=== PATIENT | female | born 1935 | race Caucasian/White ===

== ENCOUNTER 2020-03-26 12:19 | Inpatient (IN) ==
[2020-03-26] MEDS ORDERED: Diltiazem IV push/loading dose 5 MG/ML 5 ML vial (25 mg) IV PUSH ONE (12:23)
[2020-03-26 12:46] LABS: ABS Basophils 0.1 10^3/ul (0-0.2); ABS Eosinophils 0.2 10^3/ul (0-0.6); ABS Lymphocytes 1.2 10^3/ul (1.0-4.8); ABS Monocytes 0.6 10^3/ul (0-0.8); ABS Neutrophils 6.3 10^3/ul (1.5-7.7); Eosinophil % 2.1 %; Hematocrit 38 % (35-47); Hemoglobin 12.4 g/dL (12.0-16.0); Lymphocyte % 14.6 %; Mean Corpuscular HGB Conc 33 g/dL (31-36); Mean Corpuscular Hemoglobin 32 pg (27-31); Mean Corpuscular Volume 98 fL (80-97); Mean Platelet Volume 9.6 fL (7.4-10.4); Platelet Count 235 10^3/uL (150-450); Red Blood Count 3.85 10^6 /uL (3.70-4.87); Red Cell Distribution Width 14 % (10-15); White Blood Count 8.3 10^3/uL (3.5-10.8)
[2020-03-26 13:04] LABS: Albumin 4.4 g/dL (3.2-5.2); Albumin/Globulin Ratio 1.5 (1-3); BUN/Creatinine Ratio 25.4 (8-20); Calcium 9.7 mg/dL (8.6-10.3); EGFR African American 55.2 (>60); EGFR Non-African American 45.6 (>60); Magnesium 1.9 mg/dL (1.9-2.7); Potassium 4.5 mmol/L (3.5-5.0); Total Bilirubin 0.5 mg/dL (0.2-1.0); Total Protein 7.4 g/dL (6.4-8.9)
[2020-03-26 13:06] LABS: Troponin I 0.01 ng/mL (<0.03)
[2020-03-26 13:40] LABS: TSH Ultra Thyroid Stim Horm 2.73 mcIU/mL (0.34-5.60)
[2020-03-26] MEDS: Diltiazem (ADVAN VIAL) 100 MG/100 ML ADDV.BAG IV SCH (15:27)
[2020-03-26 15:34] LABS: Urine Appearance Cloudy; Urine Bilirubin Negative (Negative); Urine Blood Negative (Negative); Urine Color Yellow; Urine Glucose Negative (Negative); Urine Ketones Negative (Negative); Urine Nitrite Negative (Negative); Urine Protein Negative (Negative); Urine Specific Gravity 1.018 (1.010-1.030); Urine Urobilinogen Negative (Negative)
[2020-03-26] MEDS ORDERED: GuaiFENesin DM sugar free 100mg/10mg 5 ML UDC PO PRN (15:53)
[2020-03-26] MEDS ORDERED: Furosemide 20 mg/2 ml IV VIAL IV ONE (16:01)
[2020-03-26] MEDS ORDERED: Albuterol HFA INHALER 8 gm MDI INH PRN (18:01)
[2020-03-27] MEDS: Diltiazem (ADVAN VIAL) 100 MG/100 ML ADDV.BAG IV SCH (09:06)
[2020-03-28 14:31] VITALS: BP 92/50
== END 2020-03-28 15:24 | disposition home or self-care (01) | DRG 194 ==
LOC: ED 12:19 → MEDTELE 12:19
PROVIDERS: ADMIT Hospitalist; ATTEND Hospitalist

== ENCOUNTER 2022-03-02 09:46 | Observation (INO) ==
[2022-03-02 10:19] LABS: ABS Basophils 0.1 10^3/ul (0-0.2); ABS Lymphocytes 0.8 10^3/ul (1.0-4.8); ABS Monocytes 0.2 10^3/ul (0-0.8); ABS Neutrophils 7.8 10^3/ul (1.5-7.7); Eosinophil % 0.3 %; Hematocrit 46 % (35-47); Hemoglobin 15.1 g/dL (12.0-16.0); Lymphocyte % 8.5 %; Mean Corpuscular HGB Conc 33 g/dL (31-36); Mean Corpuscular Hemoglobin 32 pg (27-31); Mean Corpuscular Volume 96 fL (80-97); Mean Platelet Volume 10.1 fL (7.4-10.4); Platelet Count 186 10^3/uL (150-450); Red Blood Count 4.76 10^6 /uL (3.70-4.87); Red Cell Distribution Width 16 % (10-15); White Blood Count 8.8 10^3/uL (3.5-10.8)
[2022-03-02 11:01] LABS: Albumin 4.1 g/dL (3.2-5.2); Albumin/Globulin Ratio 1.4 (1-3); Calcium 9.8 mg/dL (8.6-10.3); Globulin 2.9 g/dL (2-4); Magnesium 2.4 mg/dL (1.9-2.7); Total Bilirubin 0.9 mg/dL (0.2-1.0); eGFR CKD-EPI 20.2 (>60)
[2022-03-02 11:15] LABS: TSH Ultra Thyroid Stim Horm 2.7 mcIU/mL (0.34-5.60)
[2022-03-02 11:17] LABS: Free T3 2.5 pg/mL (2.5-3.9)
[2022-03-02 11:20] LABS: Free T4 0.95 ng/dL (0.61-1.12)
[2022-03-02] MEDS ORDERED: Lactated Ringers 1000 ml BAG 1,000 ML IV ONE ×3 (11:21→22:49)
[2022-03-02] MEDS ORDERED: Potassium Chlor 20 meq TAB.ER PO ONE ×2 (13:43→22:44)
[2022-03-02] MEDS ORDERED: Albuterol HFA INHALER 8 gm MDI INH SCH (15:00)
[2022-03-02] MEDS: KCL 20 MEQ/100 ML IVPREMIX 20 MEQ/100 ML BAG IV SCH ×2 (15:56→20:06)
[2022-03-02] MEDS ORDERED: Digoxin IV 0.5 MG/2 ML AMP (0.25 MG/ML) IV SLOW PU ONE (22:44)
[2022-03-03 05:20] LABS: ABS Basophils 0.1 10^3/ul (0-0.2); ABS Eosinophils 0.3 10^3/ul (0-0.6); ABS Lymphocytes 1.5 10^3/ul (1.0-4.8); ABS Monocytes 0.6 10^3/ul (0-0.8); ABS Neutrophils 4.7 10^3/ul (1.5-7.7); Eosinophil % 3.9 %; Hematocrit 36 % (35-47); Hemoglobin 11.8 g/dL (12.0-16.0); Lymphocyte % 21.3 %; Mean Corpuscular HGB Conc 33 g/dL (31-36); Mean Corpuscular Hemoglobin 32 pg (27-31); Mean Corpuscular Volume 95 fL (80-97); Mean Platelet Volume 9.7 fL (7.4-10.4); Nucleated Red Blood Cells % 0.1; Platelet Count 131 10^3/uL (150-450); Red Blood Count 3.75 10^6 /uL (3.70-4.87); Red Cell Distribution Width 15 % (10-15); White Blood Count 7.1 10^3/uL (3.5-10.8)
[2022-03-03 06:10] LABS: Calcium 7.4 mg/dL (8.6-10.3); Magnesium 1.6 mg/dL (1.9-2.7); Potassium 3.8 mmol/L (3.5-5.0); eGFR CKD-EPI 39.8 (>60)
[2022-03-03] MEDS ORDERED: Magnesium Sulfate IV 3 GM in NS 0.9% 100 ml BAG 100 ML IVPB ONE (06:53)
[2022-03-03 13:25] LABS: C Reactive Protein 12.4 mg/L (<8.01)
[2022-03-03] MEDS ORDERED: Potassium Chlor 20 meq TAB.ER PO ONE (16:32)
[2022-03-03 18:16] LABS: Rapid COVID-19 Molecular Undetected (Undetected)
[2022-03-04 06:41] LABS: Calcium 8.8 mg/dL (8.6-10.3); Magnesium 2.1 mg/dL (1.9-2.7); Potassium 4.6 mmol/L (3.5-5.0); eGFR CKD-EPI 50.1 (>60)
[2022-03-04 07:09] VITALS: BP 118/87
== END 2022-03-04 09:30 ==
LOC: EDHOLD 09:46 → ED 09:46 → SUATTDRO 12:29 → EDHOLD 03-04 09:29
PROVIDERS: ADMIT Family Medicine; ATTEND Internal Medicine

== ENCOUNTER 2023-04-05 19:44 | Inpatient (IN) ==
[2023-04-05] MEDS ORDERED: Metoprolol Tartrate 5 mg VIAL 5 ml VIAL (1 mg/ml) IV ONE (19:58)
[2023-04-05 20:41] LABS: ABS Lymphocytes 0.4 10^3/uL (1.0-4.8); ABS Monocytes 0.9 10^3/uL (0.0-0.9); ABS Neutrophils 11.3 10^3/uL (1.5-7.6); Eosinophil % 0.1 %; Hemoglobin 13.4 g/dL (11.5-14.3); Lymphocyte % 2.9 %; Mean Corpuscular Hemoglobin 32.9 pg (27-33); Mean Corpuscular Hgb Conc 32.8 g/dL (31-36); Mean Corpuscular Volume 100.4 fL (80-97); Mean Platelet Volume 10.8 fL (7.5-11.2); Platelet Count 183 10^3/uL (150-450); Red Blood Count 4.08 10^6/uL (3.63-4.92); Red Cell Distribution Width 13.3 % (12-17); White Blood Count 12.6 10^3/uL (3.8-11.8)
[2023-04-05] MEDS ORDERED: D5W 500 ml BAG 500 ML IV SCH (21:00)
[2023-04-05 21:10] LABS: Albumin 3.3 g/dL (3.2-5.2); Albumin/Globulin Ratio 1.1 (1-3); C Reactive Protein 45.3 mg/L (<8.01); Calcium 8.7 mg/dL (8.6-10.3); Creatinine, Serum 1.84 mg/dL (0.51-0.95); Magnesium 2.4 mg/dL (1.9-2.7); Potassium 3.4 mmol/L (3.5-5.0); Total Bilirubin 0.4 mg/dL (0.2-1.0); Total Protein 6.3 g/dL (6.4-8.9); eGFR CKD-EPI 26.6 (>60)
[2023-04-05 22:16] LABS: High Sensitivity Troponin 1 Hr 63 pg/mL (<15)
[2023-04-06 02:08] LABS: Calcium 9.5 mg/dL (8.6-10.3); Creatinine, Serum 1.53 mg/dL (0.51-0.95); Potassium 2.9 mmol/L (3.5-5.0); eGFR CKD-EPI 33.1 (>60)
[2023-04-06] MEDS ORDERED: Potassium Chlor 20 meq TAB.ER PO ONE ×3 (02:16→17:49)
[2023-04-06 06:25] LABS: ABS Eosinophils 0.1 10^3/uL (0.0-0.5); ABS Lymphocytes 1.1 10^3/uL (1.0-4.8); ABS Neutrophils 9.2 10^3/uL (1.5-7.6); ABS Nucleated RBC 0.01 10^3/ul; Calcium 8.1 mg/dL (8.6-10.3); Creatinine, Serum 1.2 mg/dL (0.51-0.95); Eosinophil % 1.3 %; Hematocrit 40.6 % (35-45); Hemoglobin 13.4 g/dL (11.5-14.3); Lymphocyte % 9.8 %; Magnesium 2.1 mg/dL (1.9-2.7); Mean Corpuscular Hemoglobin 32.9 pg (27-33); Mean Corpuscular Hgb Conc 32.9 g/dL (31-36); Mean Platelet Volume 11.2 fL (7.5-11.2); Nucleated Red Blood Cells % 0.1 %/100WBC (0.0-0.8); Platelet Count 193 10^3/uL (150-450); Potassium 3.1 mmol/L (3.5-5.0); Red Blood Count 4.06 10^6/uL (3.63-4.92); Red Cell Distribution Width 13.6 % (12-17); White Blood Count 11.5 10^3/uL (3.8-11.8); eGFR CKD-EPI 44.4 (>60)
[2023-04-06] MEDS ORDERED: Albuterol HFA INHALER 8 gm MDI INH PRN (10:26)
[2023-04-06] MEDS ORDERED: Mometasone/Formoter 100/5 MDI INH SCH (11:00)
[2023-04-06] MEDS ORDERED: NS 0.9% 1000 ml BAG 1,000 ML IV SCH (14:45)
[2023-04-06 15:08] LABS: Urine Appearance Cloudy; Urine Bilirubin Negative (Negative); Urine Blood Negative (Negative); Urine Color Yellow; Urine Glucose Negative (Negative); Urine Ketones Negative (Negative); Urine Nitrite Negative (Negative); Urine Protein Negative (Negative); Urine Urobilinogen Negative (Negative)
[2023-04-06 15:13] LABS: Urine Bacteria 3+ (Absent); Urine Red Blood Cell 2+(6-10/hpf) (Absent); Urine Squamous Epithelial Cell Present (Absent); Urine White Blood Cell 3+(>20/hpf) (Absent)
[2023-04-06] MEDS ORDERED: Mineral Oil ENEMA 118 ML/BOTTLE BOTTLE PR ONE (16:56)
[2023-04-06] MEDS: Senna TAB 8.6 mg TAB PO SCH (21:49)
[2023-04-07 06:48] LABS: Hematocrit 38.5 % (35-45); Hemoglobin 12.9 g/dL (11.5-14.3); Mean Corpuscular Hemoglobin 33.4 pg (27-33); Mean Corpuscular Hgb Conc 33.6 g/dL (31-36); Mean Corpuscular Volume 99.4 fL (80-97); Mean Platelet Volume 11.5 fL (7.5-11.2); Platelet Count 149 10^3/uL (150-450); Red Blood Count 3.87 10^6/uL (3.63-4.92); Red Cell Distribution Width 13.5 % (12-17); White Blood Count 7.5 10^3/uL (3.8-11.8)
[2023-04-07 07:07] LABS: Albumin 3.2 g/dL (3.2-5.2); Albumin/Globulin Ratio 1.2 (1-3); Calcium 8.9 mg/dL (8.6-10.3); Creatinine, Serum 0.97 mg/dL (0.51-0.95); Globulin 2.7 g/dL (2-4); Potassium 3.9 mmol/L (3.5-5.0); Total Bilirubin 0.7 mg/dL (0.2-1.0); Total Protein 5.9 g/dL (6.4-8.9); eGFR CKD-EPI 57.3 (>60)
[2023-04-07] MEDS: cefTRIAXone 1 gm/50 mL D5W 1 GM/50 ML BAG IV SCH (09:46)
[2023-04-07] MEDS: Senna TAB 8.6 mg TAB PO SCH (21:56)
[2023-04-08 07:26] LABS: ALT 6 U/L (7-52); Albumin 3.5 g/dL (3.2-5.2); Alkaline Phosphatase 69 U/L (35-149); Anion Gap 11 mmol/L (2-16); Blood Urea Nitrogen 43 mg/dL (6-24); CO2 Carbon Dioxide 24 mmol/L (22-32); Calcium 9.3 mg/dL (8.6-10.3); Chloride 103 mmol/L (101-111); Globulin 3.4 g/dL (2-4); Glucose 88 mg/dL (70-100); Magnesium 2.1 mg/dL (1.9-2.7); Sodium 138 mmol/L (135-145); Total Bilirubin 0.4 mg/dL (0.2-1.0); Total Protein 6.9 g/dL (6.4-8.9); eGFR CKD-EPI 55.2 (>60)
[2023-04-08 07:28] LABS: Hematocrit 42.5 % (35-45); Hemoglobin 13.8 g/dL (11.5-14.3); Mean Corpuscular Hemoglobin 33.5 pg (27-33); Mean Corpuscular Hgb Conc 32.6 g/dL (31-36); Mean Corpuscular Volume 102.9 fL (80-97); Mean Platelet Volume 11.1 fL (7.5-11.2); Platelet Count 132 10^3/uL (150-450); Red Blood Count 4.13 10^6/uL (3.63-4.92); Red Cell Distribution Width 13.4 % (12-17); White Blood Count 6.9 10^3/uL (3.8-11.8)
[2023-04-08 08:38] LABS: Potassium Redraw 3.8 mmol/L (3.5-5.0)
[2023-04-08] MEDS: cefTRIAXone 1 gm/50 mL D5W 1 GM/50 ML BAG IV SCH (10:14)
[2023-04-08 13:37] VITALS: BP 105/71
== END 2023-04-08 13:30 | DRG 641 ==
LOC: EDHOLD 19:44 → ED 19:44 → SUATTDRO 21:23 → MEDTELE 04-06 14:07 → SUATTDRO 04-07 09:50
PROVIDERS: ADMIT Internal Medicine; ATTEND Internal Medicine